=== PATIENT | female | born 1965 | race Caucasian/White ===

== ENCOUNTER 2016-05-30 12:40 | Inpatient (IN) | payer MEDICAID, OTHER ==
[~2016-05-30] VITALS: Ht 165.1 cm; Wt 58.1 kg
[~2016-05-30 12:40] MED LIST: ALB083NB3 HHN; LITH300T PO
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
[2016-05-30 13:02] VITALS: BP 117/85; PULSE 87; RESP 16; O2SAT 98
[2016-05-30] MEDS ORDERED: chlordiazePOXIDE 25 mg Capsule PO ONE (13:15)
[2016-05-30] MEDS ORDERED: Bacitracin Ointment Packet TOPICAL ONE (13:15)
[2016-05-30] MEDS ORDERED: TdaP Vaccine 0.5 mL Inj IM ONE (13:15)
[2016-05-30 13:37] LABS: BASOPHILS % (AUTO) 0.5 % (0-3); EOSINOPHILS % (AUTO) 1.3 % (0-5); Mean Corpuscular Hemoglobin 29.4 pg (27.0-35.0); NEUTROPHILS % (AUTO) 53.1 % (40-74); Platelet Count 291 bil/L (150-400)
[2016-05-30 17:41] VITALS: BP 109/81; PULSE 98; RESP 19; O2SAT 98
[2016-05-30 19:57] VITALS: BP 127/88; PULSE 87; RESP 16; O2SAT 95
[2016-05-30] MEDS ORDERED: Thiamine Inj 100 MG, Folic Acid Inj 1 MG, Magnesium Sulfate 50% Inj 2 GM, Multivitamins... IV ONE ×5 (22:40)
[2016-05-30 23:25] VITALS: BP 136/78; PULSE 78; RESP 20; O2SAT 98
[2016-05-31 03:34] VITALS: BP 121/93; PULSE 74; RESP 14; O2SAT 97
[2016-05-31 06:01] VITALS: BP 115/80; PULSE 72; RESP 18; O2SAT 96
[2016-05-31] MEDS ORDERED: chlordiazePOXIDE 25 mg Capsule PO ONE (10:00)
[2016-05-31 11:50] VITALS: BP 117/89; PULSE 73; RESP 16; O2SAT 97
[2016-05-31 13:30] VITALS: BP 131/95; PULSE 86; RESP 16
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
[2016-05-31] MEDS ORDERED: hydrOXYzine Pamoate 25 mg Capsule PO PRN (14:00)
[2016-05-31] MEDS ORDERED: Benzocaine-Menthol Lozenge 2/Pkg PO PRN (14:00)
[2016-05-31] MEDS ORDERED: Magnesium Hydroxide 10 mL Oral Concentration PO PRN (14:00)
[2016-05-31] MEDS ORDERED: Alum-Mag Hydrox-Simeth 30 mL Suspension PO PRN (14:00)
[2016-05-31] MEDS ORDERED: PRAZ2CAP2 (14:13)
[2016-05-31] MEDS ORDERED: QUET100T69 (14:13)
[2016-05-31] MEDS ORDERED: HYDR50CA3 (14:13)
[2016-05-31] MEDS ORDERED: ALBU18HF (14:13)
[2016-05-31] MEDS ORDERED: ATOR20TA65 (14:13)
[2016-05-31] MEDS ORDERED: TRAZ-115 (14:13)
[2016-05-31] MEDS ORDERED: SERT50TA9 PO (14:13)
[2016-05-31] MEDS: Albuterol HFA 60 Puff 8 Gm Inhaler INHALATION PRN (14:41)
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
--- NOTE | 2016-06-01 01:38 | NUR ---
Observations 1900 to 0700 Pt was out in the DR for most of the night. Pt didn't talk much. Pt affect was flat. Pt did watch a majority of the movie before going to her room for the night. Pt was polite and cooperative. Pt first appeared asleep at 20:30 and was observed every 15 minutes through the night as directed.
--- NOTE | 2016-06-01 05:33 | NUR ---
nursing, nights, 11-7 s/o- has appeared to sleep after 2029 during q 15 minute assessments and remained asleep throughout this shift. a- no apparent distress. p- monitor behavior/emotional state, quality, times and amount of sleep, use and effect of medication.
[2016-06-01] MEDS: Albuterol HFA 60 Puff 8 Gm Inhaler INHALATION PRN (08:46)
[2016-06-01 10:30] VITALS: BP 107/67; PULSE 97; RESP 18
--- NOTE | 2016-06-01 13:46 | PCM.PNPSY ---
Subjective Date of Service Jun 01, 2016 Subjective Patient reports that her ex- will be taking care of her dogs. She reports having a "little hangover" from quetiapine but no other side effects. She reported that she had not cried today until she spoke with treatment team as she feels guarded with her feelings. Some sweating but no other signs of withdrawal. Denies racing thoughts Patient with back pain, discussed eggcrate. Sleep: 9.5+ hours, bad dreams, advised to not have nicotine patch on at night. Appetite: "wonderful" Suicidal and homicidal ideation: denies Auditory hallucinations: denies Visual hallucinations: denies Other Psychotic Symptoms: N/A Anxiety: "coming and going, not as bad" Depression: "not bad today." Current Medications Current Medications Acetaminophen 650 mg Q4H PRN PO Last administered on 06/01/16 08:36; Admin Dose 650 MG; Start 05/31/16 at 14:00 Albuterol 2 puff Q4H PRN INHALATION Last administered on 06/01/16 08:46; Admin Dose 2 PUFF; Start 05/31/16 at 14:00 Atorvastatin Calcium 20 mg HS PO Last administered on 05/31/16 20:50; Admin Dose 20 MG; Start 05/31/16 at 21:00 Diazepam 5 mg ONCE ONCE IVPUSH Last administered on 05/31/16 00:50; Admin Dose 5 MG; Start 05/31/16 at 00:15; Stop 05/31/16 at 00:16; Status DC Hydroxyzine Pamoate 50 mg ONCE ONCE PO Last administered on 05/31/16 10:41; Admin Dose 50 MG; Start 05/31/16 at 10:25; Stop 05/31/16 at 10:26; Status DC Nicotine 1 patch STK-MED ONCE TOPICAL Last administered on 05/31/16 12:35; Admin Dose 1 PATCH; Start 05/31/16 at 11:53; Stop 05/31/16 at 11:55; Status DC Prazosin HCl 2 mg HS PO Last administered on 05/31/16 20:50; Admin Dose 2 MG; Start 05/31/16 at 21:00 Quetiapine Fumarate 100 mg HS PO Last administered on 05/31/16 20:48; Admin Dose 100 MG; Start 05/31/16 at 21:00 Sertraline HCl 50 mg DAILY PO Last administered on 06/01/16 08:33; Admin Dose 50 MG; Start 06/01/16 at 08:30 Thiamine HCl/ Folic Acid/ Magnesium Sulfate/ Multivitamins/ Sodium Chloride 1, 015.2 ml @ 507.6 mls/hr Q2H ONCE IV Last administered on 05/30/16 23:20; Admin Dose 507.6 MLS/HR; Start 05/30/16 at 22:40; Stop 05/31/16 at 00:39; Status DC Mental Status Exam Vital Signs Vital Signs Date Time Temp Pulse Resp B/P Pulse Ox O2 Delivery O2 Flow Rate FiO2 06/01/16 10:30 35.8 97 18 107/67 Appearance: Neat/well groomed Attitude: Pleasant, Cooperative Behavior: Tearful (briefly) Affect: Well Modulated/Appropriate Mood: Dysthymic, Anxious Thought Process/Associations: Logical/Sequential, Goal Directed Speech Production: Normal Speech Rate: Normal Speech Articulation: Normal Thought Content: Appropriate Danger to Self/Suicidal Ideati: None Danger to Others: None Hallucinations: Auditory (Denies), Visual (Denies) Consciousness: Alert Orientation: Person, Place, Date, Situation Estimate Intellectual Function: Average Basis for IQ estimate: Awareness current events, Word use/vocabulary, Educational history, Employment history Attention/Concentration & Cogn: Grossly Intact Insight: Good Judgement: Good Result Diagram: 05/30/16 1320 05/30/16 1320 Mental Health Plan The patient is a 50-year-old female who is detained on the grounds of danger to self. The patient reports a heavy history of alcohol use and is currently on disability for "bipolar disorder, borderline personality disorder, post manic stress disorder, depression and anxiety." The patient is presenting currently with no acute alcohol withdrawal and primarily anxiety around her lack of housing and support. She would like to get into treatment. The patient appears to have not been medication adherent by her own report. Her symptoms would be consistent with bipolar disorder however her chronic alcohol use makes it difficult to make a diagnosis with certainty. Outpatient records from [place] and her outpatient provider will be needed to clarify her diagnostic picture. The patient is willing to restart her medications. Social work has already contacted the patient's ex- regarding care for the patient's pets. [place] AXIS I: Alcohol use disorder Bipolar disorder by history Posttraumatic stress disorder AXIS II: Borderline personality disorder by self-report AXIS III: Refer to past medical history AXIS IV: Severe AXIS V: GAF 35 Medications Trazodone 50 mg nightly when necessary insomnia Prazosin 2 mg at bedtime Atorvastatin 20 mg daily Lorazepam 1 mg every 6 hours severe agitation Hydroxyzine 50 mg every 4 hours as needed for anxiety or agitation Quetiapine 100 mg at bedtime Sertraline 50 mg daily Ventolin 2 puffs every 4 hours as needed for shortness of breath Treatments 1. The patient is admitted to the inpatient unit and will be provided a safe and secure environment. 2. The patient is denying current active suicidality and is not in need of a one-to-one at this time. She is agreeing to notify us should she have any acute suicidal or homicidal thoughts. 3. The patient is encouraged to participate with group and milieu activities. 4. The patient will be seen by the treatment team on a daily basis to assess symptoms, side effects and response to treatment. 5. The patient will be continued medications as noted above. 6. Anticipated length of stay 3-5 days. Domenic Bonds MD Jun 01, 2016 13:46
--- NOTE | 2016-06-01 14:13 | NUR ---
Observations [id number] Pt was asleep upon start of shift. She attended all meals, eating 100%. Pt is very focused on therapy and group attendance. She attended Community Meeting, setting goals and mentioning that she feels quite bored. Pt appears to struggle getting along with peers, wanting to spend time alone. She stated that last night she had a midnight, struggled with sleeping and wanted to call for help but was unsure how to. Pt was shown call button to press in case of emergency. She took a shower and napped in the afternoon. She was observed every 15 minutes of shift as directed.
[2016-06-01] MEDS: LORazepam 1 mg Tablet PO PRN ×2 (15:09→21:09)
--- NOTE | 2016-06-01 15:51 | NUR ---
Nursing: Day shift: S: This place doesn't have groups as much as other facilities where I have been....At 1500. I know my rights. I am not going to color. I want to fill out a grievance form. The mago izaguirre mattress really worked. O: Gay is groomed neatly. Within first hour, she approached blog writer and verbalized complaint about lack of activities here. Commented that she would not do coloring while here. Although Gay attended community meeting and craft groups today she she stayed at the afternoon group for only a short time. She became upset at 1500, asked for an Ativan, and stated she would fill out a grievance form about staff. PRN Ativan 1 mg was administered at 1515. By 1615 she stated that "it helped". Gay did write out comments about her experience on this unit. At 1700, she met with particleboard factory worker and stated "It was a very good meeting." Gay was observed reading the patient rights desizing machine offbearer on the wall outside the nursing station. Other PRN meds: Tylenol 650 mg for lower back pain at 0830 for pain at 9/10, At 0930, pt stated "It didn't help." Requested and received Albuterol inhaler 2 puffs at 1000 with respiratory relief. A: Pt is very concerned that she be respected. No obvious psychotic symptoms. P: Observe for need for additional PRN medications for anxiety. Addendum: 06/01/16 at 1742 by ESTEVAN MADERA RN Amended: Links added. Addendum: 06/01/16 at 1807 by ESTEVAN MADERA RN Sleep: Even though staff reported that PT slept well, she stated she had not slept much at all. Later in shift, she attributed poor sleep and nightmares to having had the nicotine patch on during the night. Pain: At 1700, pt stated that her back pain is "gone". The addition of the egg crate mattress to her bed helped a lot, she said.
--- NOTE | 2016-06-01 17:35 | NUR ---
spiritual care: pt request conversational visit. pt engaged easily, shared personal history and harrison recent and distant traumatic/loss experiences. Pt shared of 2 close friends in past year and her own struggles with mental health, addiction and limited means. Pt described herself as wanting to be closer to God and described what causes/forces distance for her. pt insightful, expressive, articulate about her feelings including her interpretation of a staff comment. Pt requested copy of apostles ebony.
--- NOTE | 2016-06-01 17:57 | NUR ---
Computed Tomography Scanner Operator/Counselor: S: "My ex- stepped up to the plate and is taking care of my dogs." O: Patient slept 9.5+ hours last night as per staff. He denies S/I and H/I. He denies auditory and visual hallucinations. Depression is 0/10 and anxiety is "coming and going, not too bad." This assembly instructions writer called patient's ex-, Irwin, as requested by patient, and left a voice message for Irwin to "move patient's bicycle behind the camper." A: Patient is cooperative, tearful, dysthymic, anxious. P: Follow care plan, coordinate out-patient providers. Addendum: 06/01/16 at 1811 by ANTONI AKHTAR [facility] Notes should state "she" in the place of "he." She denies S/I and H/I. She denies auditory and visual hallucinations.
--- NOTE | 2016-06-02 01:05 | NUR ---
Observations 1900 to 0700 Pt was out in the DR for most of the night. Pt didn't talk much. Pt affect was flat. Pt did watch TV before going to her room for the night. Pt was polite and cooperative. Pt first appeared asleep at 21:45 and was observed every 15 minutes through the night as directed.
--- NOTE | 2016-06-02 05:23 | NUR ---
Nursing [id number] Pt up in milieu upon arrival to unit. Pt c/t have many complaints regarding facility. Pt given PRN Trazodone and Ativan at 2109 to promote sleep and decrease anxiety. Pt noted sleep time 2145 and has 8 hr uninterrupted sleep. Q15 min safety checks done per protocol , no distress noted. WCTM sleep, safety, behavior
[2016-06-02 12:17] VITALS: BP 113/71; PULSE 92; RESP 18
--- NOTE | 2016-06-02 15:17 | PCM.PNPSY ---
Subjective Date of Service Jun 02, 2016 Subjective Patient reports that she felt slighted by an MHA when she inquired as to whether they were going to have a group yesterday which had yet to start. Patient reported that this brought back feelings of marginalization and embarrassment. Patient remained fixated on it today. Discussed ways to reduce anxiety and to use a CBT thought log to process these events. Also discussed her weapon. She stated that she has a lock on it and plans to store it in her storage unit. On discharge she plans to clean up her trailer and take valuables that she doesn't want stolen as well as her gun and put it in storage. She reports feeling better overall and would like to re-engage with [facility] on discharge and to have an appointment with her PCP. Patient reported having a nightmare during her nap and we discussed switching to increase frequency of lozenges, patient agreeable. No side effects except some sedation from quetiapine. Reports eggcrate mattress helpful for back pain. Sleep: 7.5+ hours, only bad dreams this morning after falling asleep with nicotine patch on. Appetite: "Great" Suicidal and homicidal ideation: denies Auditory hallucinations: denies Visual hallucinations: denies Other Psychotic Symptoms: N/A Anxiety: "pretty good" Depression: "not depressed." Current Medications Current Medications Atorvastatin Calcium 20 mg HS PO Last administered on 06/01/16 21:09; Admin Dose 20 MG; Start 05/31/16 at 21:00 Nicotine 1 patch DAILY TOPICAL Last administered on 06/02/16 08:15; Admin Dose 1 PATCH; Start 06/01/16 at 08:30 Prazosin HCl 2 mg HS PO Last administered on 06/01/16 21:09; Admin Dose 2 MG; Start 05/31/16 at 21:00 Quetiapine Fumarate 100 mg HS PO Last administered on 06/01/16 21:09; Admin Dose 100 MG; Start 05/31/16 at 21:00 Sertraline HCl 50 mg DAILY PO Last administered on 06/02/16 08:14; Admin Dose 50 MG; Start 06/01/16 at 08:30 Mental Status Exam Vital Signs Vital Signs Date Time Temp Pulse Resp B/P Pulse Ox O2 Delivery O2 Flow Rate FiO2 06/02/16 12:17 36.0 92 18 113/71 Appearance: Neat/well groomed Attitude: Pleasant, Cooperative Behavior: No unusual behavior Affect: Well Modulated/Appropriate Mood: Irritable (regarding MHA) Thought Process/Associations: Logical/Sequential, Goal Directed Speech Production: Normal Speech Rate: Normal Speech Articulation: Normal Thought Content: Appropriate Danger to Self/Suicidal Ideati: None Danger to Others: None Hallucinations: Auditory (Denies), Visual (Denies) Consciousness: Alert Orientation: Person, Place, Date, Situation Estimate Intellectual Function: Average Basis for IQ estimate: Awareness current events, Word use/vocabulary, Educational history, Employment history Attention/Concentration & Cogn: Grossly Intact Insight: Good Judgement: Good Result Diagram: 05/30/16 1320 05/30/16 1320 Mental Health Plan The patient is a 50-year-old female who is detained on the grounds of danger to self. The patient reports a heavy history of alcohol use and is currently on disability for "bipolar disorder, borderline personality disorder, post manic stress disorder, depression and anxiety." The patient is presenting currently with no acute alcohol withdrawal and primarily anxiety around her lack of housing and support. She would like to get into treatment. The patient appears to have not been medication adherent by her own report. Her symptoms would be consistent with bipolar disorder however her chronic alcohol use makes it difficult to make a diagnosis with certainty. The patient was willing to restart her medications and has reported good response to treatment. Social work has already contacted the patient's ex- regarding care for the patient's pets. Outpatient records from [place] and her outpatient provider will be needed to clarify her diagnostic picture and have yet to arrive. [place] AXIS I: Alcohol use disorder Bipolar disorder by history Posttraumatic stress disorder AXIS II: Borderline personality disorder by self-report AXIS III: Refer to past medical history AXIS IV: Severe AXIS V: GAF 35 Medications Trazodone 50 mg nightly when necessary insomnia Prazosin 2 mg at bedtime Atorvastatin 20 mg daily Lorazepam 1 mg every 6 hours severe agitation Hydroxyzine 50 mg every 4 hours as needed for anxiety or agitation Quetiapine 100 mg at bedtime Sertraline 50 mg daily Ventolin 2 puffs every 4 hours as needed for shortness of breath Treatments 1. The patient is admitted to the inpatient unit and will be provided a safe and secure environment. 2. The patient is denying current active suicidality and is not in need of a one-to-one at this time. She is agreeing to notify us should she have any acute suicidal or homicidal thoughts. 3. The patient is encouraged to participate with group and milieu activities. 4. The patient will be seen by the treatment team on a daily basis to assess symptoms, side effects and response to treatment. 5. The patient will be continued medications as noted above. 6. Re-request records from [place]. 7. Patient's [address] order expires tomorrow at midnight. Domenic Bonds MD Jun 02, 2016 15:17
--- NOTE | 2016-06-02 18:02 | NUR ---
Nursing: Day Shift: S: I will clean up the place. Will store my belongings, including my gun, and be with my dogs. I'm sober. That's good. O: Gay was more isolative to her room this shift than yesterday. Initially was complaining about "incident" (patient's term) yesterday, but by dinner time, she had calmed and stated she was focusing on what she needed to do after discharge. Behavior today was without outbursts or as frequent requests as yesterday. Did request and receive prn Tylenol 650 mg for pain at 7/10 level at 1600. At 1700, rated pain at 4/10. Denies suicidal thinking now. Depression or anxiety. Takes scheduled meds as offered. A: Approaching discharge tomorrow. P: Encourage Gay in making future plans. Addendum: 06/02/16 at 1810 by ESTEVAN MADERA RN Amended: Links added.
[2016-06-02] MEDS: LORazepam 1 mg Tablet PO PRN (20:50)
--- NOTE | 2016-06-03 05:25 | NUR ---
Nursing Note [id number] Pt up in milieu upon arrival to unit. Pt c/t have demanding, argumentative and staff splitting behaviors. Pt was compliant with HS meds and took Ambien and Trazodone PRN at 2049. Pt returned to room and noted asleep shortly after with a total of 7 hr uninterrupted sleep. Q15 min safety checks done per protocol, no distress noted WC sleep, behavior, safety
[2016-06-03 10:18] VITALS: BP 108/75; PULSE 104; RESP 16
--- NOTE | 2016-06-03 12:06 | PCM.DIMED ---
Discharge Instructions Date of Service Jun 03, 2016 Dates of Hospitalization May 31, 2016 at 12:25 Discharge Diagnosis Discharge Diagnosis AXIS I: Alcohol use disorder Bipolar II disorder, by history Posttraumatic stress disorder AXIS II: Borderline personality disorder, by history AXIS III: Fibromyalgia Chronic back pain Hyperlipidemia Hepatitis C treated with interferon AXIS IV: Severe AXIS V: GAF 50 Test Results CBC Test 05/30/16 13:20 White Blood Count 6.0th/mm3 (3.8-10.1) Red Blood Count 5.24mil/mm3 (3.90-5.20) Hemoglobin 15.4g/dL (12.0-15.6) Hematocrit 46.1% (35.0-46.0) Mean Corpuscular Volume 88.0fL (81-100) Mean Corpuscular Hemoglobin 29.4pg (27.0-35.0) Mean Corpuscular Hemoglobin Concent 33.4% (32.0-37.0) Red Cell Distribution Width 14.9% (12.3-15.4) Platelet Count 291bil/L (150-400) Neutrophils (%) (Auto) 53.1% (40-74) Lymphocytes (%) (Auto) 36.9% (14-46) Monocytes (%) (Auto) 8.0% (4-12) Eosinophils (%) (Auto) 1.3% (0-5) Basophils (%) (Auto) 0.5% (0-3) CMP Test 05/30/16 13:20 Sodium Level 141mEq/L Potassium Level 4.3mEq/L Chloride Level 101mEq/L Carbon Dioxide Level 24mmol/L Blood Urea Nitrogen 13mg/dL Creatinine 0.64mg/dL Estimat Glomerular Filtration Rate 140mL/min Glucose Level 99mg/dL Calcium Level 9.0mg/dL Total Bilirubin 0.4mg/dL Aspartate Amino Transf (AST/SGOT) 148U/L Alanine Aminotransferase (ALT/SGPT) 92U/L Alkaline Phosphatase 106U/L Total Protein 7.5g/dL Albumin 4.2g/dL Thyroid Stimulating Hormone (TSH) 0.749uIU/mL Hold Duarte Top Tube Received Diet Heart Healthy Activity No restrictions Patient Instructions Should you have any thoughts of harming yourself or others, please call the crisis line, your provider, 911, or go to the nearest Emergency Department. Do not change or discontinue your medications without discussing with your provider. You have been given a prescription for 14 days supply of your medication Follow-up plan Psychiatric follow-up [facility] at Intake on 06/07/16 at 12:30pm [address] [address] Domenic Bonds MD Jun 03, 2016 12:06
[2016-06-03] MEDS ORDERED: PRAZ2CAP PO (12:13)
[2016-06-03] MEDS ORDERED: HYDR50CA3 PO (12:13)
[2016-06-03] MEDS ORDERED: ATOR20TA65 PO ×2 (12:13)
[2016-06-03] MEDS ORDERED: SERT50TA9 PO (12:13)
[2016-06-03] MEDS ORDERED: PRAZ2CAP2 PO (12:13)
[2016-06-03] MEDS ORDERED: TRAZ-115 PO (12:13)
[2016-06-03] MEDS ORDERED: ALBU18HF INHALATION (12:13)
[2016-06-03] MEDS ORDERED: QUET100T69 PO (12:13)
--- NOTE | 2016-06-03 13:59 | NUR ---
Nursing Discharge Note: Patient cooperative with discharge process. Acknowledges understanding of d/c instructions and has a copy with them upon leaving unit at 1250. Belongings accounted for and with patient. Prescriptions with patient upon leaving unit. Patient denies harmful thoughts and hallucinations at this time. Smiling at time of d/c.
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
--- NOTE | 2016-06-03 18:23 | NUR ---
Newswriter/Counselor: S: "I'm feeling a lot stronger, I'm doing alright today." O: Patient slept 9.25 hours last night as per staff. She denies S/I and H/I. She denies auditory and visual hallucinations. Depression is 0/10 and anxiety is "alright." Out-patient appointment: Frances Odom medical billing coordinator, 06/07/16, 12:30pm. A: Patient is cooperative, hopeful, fair insight, fair judgement. P: Follow care plan, coordinate out-patient providers.
== END 2016-06-03 13:50 | disposition home or self-care (01) | DRG 897 ==
LOC: SED 12:40 → UNDOADMIN 05-31 12:25 → MHC 05-31 12:25
PROVIDERS: ADMIT Psychiatry & Neurology Psychiatry; ATTEND Psychiatry & Neurology Psychiatry
DX: F10.99 Alcohol use, unspecified with unspecified alcohol-induced disorder (principal); F31.9 Bipolar disorder, unspecified; I10 Essential (primary) hypertension; E78.5 Hyperlipidemia, unspecified; F43.10 Post-traumatic stress disorder, unspecified; M79.7 Fibromyalgia; G89.29 Other chronic pain; F17.200 Nicotine dependence, unspecified, uncomplicated; T14.91 Suicide attempt; S60.812A Abrasion of left wrist, initial encounter; X78.1XXA Intentional self-harm by knife, initial encounter; Y92.009 Unspecified place in unspecified non-institutional (private) residence as the place of occurrence of the external cause

== ENCOUNTER 2016-07-23 15:22 | Emergency (ER) | payer MEDICAID ==
[~2016-07-23] VITALS: Ht 165.1 cm; Wt 54.5 kg
[~2016-07-23 15:22] MED LIST changes: -ALB083NB3 HHN; +ALBU18HF INHALATION; +ATOR20TA65 PO; +HYDR50CA3 PO; -LITH300T PO; +PRAZ2CAP PO; +PRAZ2CAP2 PO; +QUET100T69 PO; +SERT50TA9 PO; +TRAZ-115 PO
[2016-07-23 15:45] VITALS: BP 155/93; PULSE 118; RESP 16; O2SAT 99
== END 2016-07-23 16:00 | disposition left against medical advice (07) ==
LOC: SED 15:22
DX: F10.10 Alcohol abuse, uncomplicated (principal); Z53.29 Procedure and treatment not carried out because of patient's decision for other reasons